=== PATIENT | male | born 1955 | race Caucasian/White ===

== ENCOUNTER 2016-06-24 10:15 | Emergency (ER) | payer BC ==
[~2016-06-24] VITALS: Ht 175.3 cm; Wt 94.8 kg
[2016-06-24 10:58] LABS: MCH 28.8 PG (29.0-34.0); MCHC 33.2 G/DL (30.0-36.0); MCV 86.9 FL (86-99); MEAN PLAT.VOLUME 9.4 uM^3 (9.0-12.4); PLATELET COUNT 284 K/uL (156-360); RBC DIS.WIDTH-CV 12.7 % (11.8-14.6); RBC DIS.WIDTH-SD 40.3 % (39-53); RED BLOOD COUNT 5.41 M/uL (4.00-5.50); WHITE BLOOD COUNT 6.4 K/uL (4.1-10.2)
[2016-06-24 11:07] LABS: CHLORIDE 105 mEq/L (99-109); SODIUM 142 mEq/L (136-147)
[2016-06-24 11:08] LABS: GLUCOSE 101 mg/dL (70-99)
[2016-06-24 11:10] LABS: ANION GAP 9 MEQ/L (2-14)
[2016-06-24 11:13] LABS: GFR ESTIMATE (CALCULATED) > 59 mL/min/; UREA NITROGEN (BUN) 11 mg/dL (9-23)
[2016-06-24 14:00] VITALS: BP 133/81
[2016-06-24] MEDS ORDERED: [UNRECOGNIZED DRUG - OTHER] PO (14:30)
[2016-06-24] MEDS ORDERED: [UNRECOGNIZED DRUG - OTHER] PO (14:30)
[2016-06-24] MEDS ORDERED: FORMULA PO (14:30)
== END 2016-06-24 16:04 | disposition home or self-care (01) ==
LOC: EME 10:15
PROVIDERS: Emergency Medicine
PROC: 0DC38ZZ Extirpation of Matter from Lower Esophagus, Via Natural or Artificial Opening Endoscopic (ICD-10-PCS; principal; 2016-06-24)
DX: T18.128A Food in esophagus causing other injury, initial encounter (principal); R13.10 Dysphagia, unspecified; K20.9 Esophagitis, unspecified; K29.50 Unspecified chronic gastritis without bleeding; K21.9 Gastro-esophageal reflux disease without esophagitis; E66.9 Obesity, unspecified; Z68.30 Body mass index [BMI] 30.0-30.9, adult
CPT/HCPCS: 80048; 85027; J0330; J1100; J2250; J2405; J3010; J7030